=== PATIENT | male | born 1985 | race Caucasian/White ===

== ENCOUNTER 2016-04-21 17:59 | Emergency (ER) | payer OTHER ==
[~2016-04-21] VITALS: Ht 188 cm; Wt 79.4 kg
[2016-04-21] MEDS ORDERED: TdaP Vaccine 0.5ml Syr IM ONE (18:30)
[2016-04-21] MEDS ORDERED: Lidocaine 1% MPF 10mg/ml 5ml IM ONE (18:30)
[2016-04-21] MEDS ORDERED: Bacitracin Oint UD TOPIC ONE (18:30)
[2016-04-21] MEDS ORDERED: IBUPROFEN600 MG ORAL (20:10)
[2016-04-21 20:23] VITALS: BP 120/74
--- NOTE | 2016-04-21 22:12 | Emergency Room Report ---
History of Present Illness General Chief Complaint: Laceration Source: Patient Present Illness HPI The patient is a 30-year-old male presenting for left hand laceration which occurred at work. The patient states that a glass broke in his hand and he sustained a laceration. Patient noticed pain and bleeding. Pain is described as a 2/10 dull ache it does not radiate from the index finger. The patient denies prior injury to this finger. Patient denies numbness or tingling. Pt denies any other symptoms Allergies: Coded Allergies: PENICILLIN G (Verified Allergy, Unknown, 04/21/16) Patient History Past Medical History: see triage record Pertinent Family History: none Reviewed Nursing Documentation: PMH: Agreed, PSxH: Agreed Nursing Documentation-PMH Past Medical History: No Stated History Review of Systems All Other Systems: negative except mentioned in HPI Physical Exam Vital Signs Date Time Temp Pulse Resp B/P Pulse Ox O2 Delivery O2 Flow Rate FiO2 04/21/16 18:24 98.1 60 14 120/74 100 Room Air Sp02 EP Interpretation: reviewed, normal General Appearance: no apparent distress, alert, GCS 15, non-toxic Head: normocephalic, atraumatic Eyes: bilateral eye PERRL, bilateral eye normal inspection Musculoskeletal: back normal, gait/station normal, normal range of motion, tender - TTP over laceration Neurologic: alert, oriented x3, responsive, motor strength/tone normal, sensory intact, speech normal Psychiatric: judgement/insight normal, memory normal, mood/affect normal, no suicidal/homicidal ideation Skin: no rash, normal turgor, laceration - 2cm laceration to the L medial index finger distal to MCPJ Lymphatic: no adenopathy Procedures Laceration/Wound Repair Laceration/Wound Repair : Consent: Verbal Wound Location: upper extremity - L index finger Wound's Depth, Shape: superficial Wound Length (cm): 2 Wound Explored: clean Irrigated w/ Saline (ccs): 200 Betadine Prep?: Yes Anesthesia: 1% Lidocaine - digital block Volume Anesthetic (ccs): 4 Wound Debrided: minimal Wound Repaired With: sutures Suture Size/Type: 5:0, nylon Number of Sutures: 2 Layer Closure?: No Sterile Dressing Applied?: Yes Splint Applied?: No Sling Applied?: No Patient Tolerated: Well Complications: None Medical Decision Making PA Attestation Dr. Rico is my supervising physician. Patient management was discussed with my supervising physician Diagnostic Impression: Primary Impression: Finger laceration ER Course The patient is a 30-year-old male presenting for left hand laceration which occurred at work Ddx considered include but not limited to fracture, tendon/ligament injury, avulsion, nerve damage PE: vitals WNL. NAD 2cm linear laceration to the L medial index finger distal to MCPJ. Full AROM of fingers. SILT. No bleeding. X-ray of the hand unremarkable. The wound was irrigated with normal saline and cleaned with betadine. A 27g needle was used to administer 4mL of lidocaine w.o epi for digital block. 2 sutures were placed with 5-0 Nylon. The wound was well approximated and the patient tolerated the procedure well. The wound was then cleaned and bacitracin was applied. The patient will be discharged home. Suture instructions given. Patient will follow up with workers compensation Other X-Ray Diagnostic Results Other X-Ray Diagnostic Results : X-Ray Ordered: L hand Date: Apr 21, 2016 EP Interpretation: Yes Findings: no fractures, no dislocation, no soft tissue swelling Number of Views: 3 PA Scribe Text I am acting as scribe for my supervising physician. My supervising physician's interpretation of the L hand xrays are there are no fractures, dislocations or soft tissue swelling. Last Vital Signs Date Time Temp Pulse Resp B/P Pulse Ox O2 Delivery O2 Flow Rate FiO2 04/21/16 18:24 98.1 60 14 120/74 100 Room Air Status: improved Disposition: HOME, SELF-CARE Condition: Improved Scripts Ibuprofen* (MOTRIN*) 600 Mg Tablet 600 MG ORAL Q8H Y for For Pain, #30 TAB 0 Refills Prov: DAYANA GARIBAY PKaruna 04/21/16 Patient Instructions: Laceration Care, Adult Additional Instructions: I discussed my findings with the patient. All questions and concerns have been answered. Treatment and medication compliance have been addressed. I advised the patient that they need to follow up with PMD in 7 days for wound check and suture removal. If you are unable to see PMD, return to the ED in 7 days. Return to ED if pain remains or worsens, you notice discharge from the wound, the wound continues to bleed, the suture/s fall out, you notice a fever or chills, or for any reason. Patient is advised to keep the wound clean. Patient verbalized understanding of discharge instructions. DAYANA GARIBAY Apr 21, 2016 22:12
--- NOTE | 2016-04-22 10:01 | Diagnostic Imaging Report ---
Indication: PAIN, laceration Technique: 3 views left hand Comparison: none Findings: No acute fractures. No dislocations. Joint spaces are preserved. No radiopaque foreign body demonstrated. Impression: Negative
== END 2016-04-21 20:23 | disposition home or self-care (01) ==
LOC: EMR 19:15
DX: S61.211A Laceration without foreign body of left index finger without damage to nail, initial encounter (principal); Z23 Encounter for immunization; Z88.0 Allergy status to penicillin; W25.XXXA Contact with sharp glass, initial encounter; Y92.9 Unspecified place or not applicable; Y99.8 Other external cause status
CPT/HCPCS: 90471; 90715